=== PATIENT | female | born 1935 | race African-American/Black ===

== ENCOUNTER 2016-07-15 11:59 | Day surgery (SDC) | payer OTHER ==
[2016-07-14 11:26] LABS: HEMATOCRIT 28.9 % (36.0-48.0); HEMOGLOBIN 9.4 g/dL (12.0-16.0)
[2016-07-14 11:40] LABS: BUN (BLOOD UREA NITROGEN) 63 MG/DL (6-23); CALCIUM, SERUM 8.2 MG/DL (8.5-10.4); CHLORIDE, SERUM 115 MMOL/L (96-112); CO2 (CARBON DIOXIDE) 19 MMOL/L (24-34); CREATININE 6.51 MG/DL (0.55-1.02); GFR AFRICAN AMERICAN 6 ML/MIN (>=60); GFR NON AFRICAN AMERICAN 6 ML/MIN (>=60); GLUCOSE, SERUM 96 MG/DL (60-99); POTASSIUM, SERUM 3.8 MMOL/L (3.5-5.3)
[2016-07-14 11:41] LABS: SODIUM, SERUM 148 MMOL/L (135-148)
--- NOTE | ~2016-07-15 | OP ---
Record Of Operation [facility] [address] [place]. [address] NAME: SRIRAM REES : 35 STATUS : [facility]#: [id number] AGE: 80 ADM/REG DATE : 07/15/16 MR#: [id number] REPORT SERV DATE: 07/15/16 DICTATED BY: JORGE ALBERTO MOY DATE: 07/15/16 REPORT STATUS : Draft TRANSCRIBED BY: MODL DATE: 07/15/16 DATE OF PROCEDURE: 07/15/2016 PREOPERATIVE DIAGNOSIS: Chronic kidney disease, stage IV. POSTOPERATIVE DIAGNOSIS: Chronic kidney disease, stage IV. PROCEDURE: Left brachial artery to axillary vein AV graft. SURGEON: Jorge Alberto Moy M.D. [employer] SHELLER OPERATOR: Jack Schneider MD. ANESTHESIA: Block and local. INDICATIONS: The patient is an 80-year-old female who has advanced kidney disease and needs longer term dialysis access. Risks, benefits, and alternatives were discussed. She agreed to proceed. DESCRIPTION OF PROCEDURE: After informed consent was obtained, the patient was taken to the operating room and placed in the supine position on the operating table. A block had previously been administered. The patient's left upper extremity was examined with an ultrasound and I found that the veins were all small with the exception of the left axillary vein. Thus, the left upper extremity was prepped and draped in the usual sterile fashion. Longitudinal skin incisions were made along the proximal distal arm. Cautery was used to deepen the incision. I dissected out the brachial artery, which was about 5 mm in diameter and diseased. The axillary vein was approximately 7 mm in diameter. I controlled the axillary vein after systemic heparinization. I tunneled a 4 to 7 mm standard wall PTFE graft in a subcutaneous position. I spatulated the 7 mm end of the graft and created a longitudinal venotomy on the axillary vein. I sewed the spatulated end of the graft onto the side of the axillary vein. I flushed of air and debris before tying down the sutures. I achieved hemostasis. I then controlled the brachial artery. I spatulated the 4 mm end of the graft. I created a longitudinal arteriotomy on the brachial artery. I sewed the end of the graft on to the side of the brachial artery. I flushed of air and debris before tying down the sutures. There was a good thrill within the graft. The vein dilated up well in the axilla. There was a good pulse at the wrist. I washed out the wounds, achieved hemostasis, and closed the wound in layers. The patient tolerated the procedure well without any intraprocedural complications noted. TERI/CARLEE Jorge Alberto Moy M.D. Record Of Operation [address] [address] NAME: SRIRAM REES : 35 STATUS : [facility] PAT#: [id number] AGE: 80 ADM/REG DATE : 07/15/16 MR#: [id number] REPORT SERV DATE: 07/15/16 DICTATED BY: JORGE ALBERTO MOY DATE: 07/15/16 REPORT STATUS : Draft TRANSCRIBED BY: CARLEE DATE: 07/15/16 / [id number] CC: Chester Recinos M.D.
[~2016-07-15 11:59] MED LIST: ARICEPT5 PO; ASAB PO; COREG3 PO; LIPITOR80 MG PO; NAMENDA10 MG PO; NORV5 PO; REMERON30 MG PO; SYN125 PO; ULTRAM50 PO; VITAMIN B-121000 MC1 SL; VITAMIN D31000 UNIT PO
== END 2016-07-15 19:47 | disposition home or self-care (01) ==
LOC: SDC 11:59
PROVIDERS: Surgery
PROC: 03180ZD Bypass Left Brachial Artery to Upper Arm Vein, Open Approach (ICD-10-PCS; principal; 2016-07-15 13:15)
DX: I12.0 Hypertensive chronic kidney disease with stage 5 chronic kidney disease or end stage renal disease (principal); N18.6 End stage renal disease; N18.4 Chronic kidney disease, stage 4 (severe); E21.3 Hyperparathyroidism, unspecified; E03.9 Hypothyroidism, unspecified; E11.22 Type 2 diabetes mellitus with diabetic chronic kidney disease; I73.9 Peripheral vascular disease, unspecified; F03.90 Unspecified dementia, unspecified severity, without behavioral disturbance, psychotic disturbance, mood disturbance, and anxiety; Z87.820 Personal history of traumatic brain injury
CPT/HCPCS: 36830; 80048; 82962; 85014; 85018; 93005; C1768; J0690; J2250; J2405; J2795; J3010